=== PATIENT | female | born 1955 | race Caucasian/White ===

== ENCOUNTER 2020-01-24 18:39 | Emergency (ER) | payer BC, SELFPAY ==
--- NOTE | ~2020-01-24 | CT_ITS ---
EXAMINATION: CT abdomen pelvis wo con DATE: 01/24/2020 20:23 INDICATION: Epigastric pain and fever TECHNIQUE: Computed tomography (CT) of the abdomen and pelvis was performed without intravenous contr ast. The dose-length product (DLP) was 335.35 mGy-cm. Automated exposure control and iterative recons truction technique were employed. COMPARISON: None FINDINGS: There are at least nine nodules of the visualized lung bases, the largest of which measures 11 mm in the right lower lobe. There is mild emphysema. Dependent atelectasis is noted. The heart si ze is normal. There is circumferential wall thickening of the distal esophagus. Punctate calcificatio ns in an otherwise normal spleen likely represent healed granulomatous disease. The liver, pancreas, and adrenal glands are normal. There is mild gallbladder distention without surrounding inflammatory change or radiopaque stones. The right kidney is unremarkable. There is moderate left perinephric fat stranding. There is mild lumbar spondylosis. There is a small fat-containing umbilical hernia. No pa thologically enlarged abdominal or pelvic lymph nodes are identified. There is no free intraperitonea l gas or evidence of bowel obstruction. There is calcified atherosclerosis of the aorta and many of t he other arteries. IMPRESSION: 1. Left perinephric fat stranding which could reflect pyelonephritis. 2. Multiple nodules of the visualized lung bases measuring up to 11 mm. In the absence of prior imagi ng, CT follow-up in three months. 3. Circumferential wall thickening of the distal esophagus which could reflect esophagitis. Direct vi sualization is recommended. Reviewed, dictated and finalized at location A. IMPRESSION: 1. Left perinephric fat stranding which could reflect pyelonephritis. 2. Multiple nodules of the visualized lung bases measuring up to 11 mm. In the absence of prior imaging, CT follow-up in three months. 3. Circumferential wall thickening of the distal esophagus which could reflect esophagitis. Direct visualization is recommended.
[2020-01-24 18:45] VITALS: BP 110/65; RESP 20; TEMP 36.6; O2SAT 100
--- NOTE | 2020-01-24 18:53 | ECG_ITS ---
Measurements Intervals [place] Rate: 98 P: 22 MS: 143 QRS: -29 QRSD: 94 T: 17 QT: 342 QTc: 438 Interpretive Statements SINUS RHYTHM BASELINE ARTIFACT- I, III, V5 NORMAL ECG Electronically Signed On 01-25-2020 13:03:43 CDT by Luciano Carrillo D.O.
--- NOTE | 2020-01-24 19:06 | ED.ABDPAIN ---
HPI - Abdominal Pain General Chief Complaint: Abdominal Pain Stated Complaint: heartburn Time Seen by Provider: 01/24/20 19:05 History of Present Illness HPI narrative: Buring epgastric pain for the past 3 days. Radiates into the chest. Associated with nausea, vomiting, and loose stools. SHe has had significantly decreased PO intake. Additionally she was noted to have a fever this morning. She had testing done fr COVID-19, no results. She has not tried anything for her symproms. Related Data Allergies Allergy/AdvReac Type Severity Reaction Status Date / Time No Known Allergies Allergy Verified 01/24/20 18:50 Review of Systems Review of Systems: All systems reviewed & are unremarkable except as noted in HPI and below Constitutional: Constitutional: Reports fever(s) Cardiovascular: Cardiovascular: Denies chest pain Respiratory: Respiratory: Denies dyspnea Gastrointestinal: Gastrointestinal: Reports abdominal pain, Reports diarrhea, Reports nausea and Reports vomiting Genitourinary: Genitourinary: Denies hematuria and Denies dysuria Neurologic: Denies dizziness, Denies syncope, Denies numbness and Denies weakness [facility] Past Medical History Medical History Hypercholesteremia Hypertension Exam Const: General: healthy appearing, no acute distress and alert Orientation/consciousness: patient oriented x3 HENMT: Head: normal to inspection Neck: Neck: normal visual inspection and no lymphadenopathy Chest: Chest palpation & inspection: no tenderness Resp: Effort & Inspection: normal respiratory effort Auscultation: clear to auscultation bilaterally, no rales, no rhonchi and no wheezes Cardio: Jugular venous distension: no JVD Rate: regular rate Rhythm: regular rhythm Heart sounds: no murmurs GI: Inspection: non-distended GI Palp: Yes Soft to palpation and Yes Tenderness to palpation present (GI) (epigastrium) Skin: General skin exam: normal color Neuro: General: patient oriented x3 and moves all extremities Speech: normal speech Extrem: General: no edema Psych: Appearance: well kempt Affect: normal affect Course Vital Signs Vital signs: Vital Signs Temperature 36.6 C 01/24/20 18:45 Respiratory Rate 20 01/24/20 18:45 Blood Pressure 110/65 01/24/20 18:45 Pulse Oximetry 100 01/24/20 18:45 Temperature 36.6 C 01/24/20 18:45 Pulse Rate 86 01/24/20 20:52 Respiratory Rate 18 01/24/20 20:52 Blood Pressure 96/62 L 01/24/20 20:52 Pulse Oximetry 100 01/24/20 18:45 MDM - Abdominal Pain MDM Narrative Medical decision making narrative: Labs point toward [place], although no prior labs for comparison. CT shows stranding around the left kidney and findings consistent with esophagitis. I discussed all of these findings with the patient and recommended admission for IV antibiotics, hydration, and repeat labs. She declined hospital admission and said that she will return if she needs to. Differential Diagnosis Differential diagnosis: Likely acute appendicitis, diverticulitis, gastroenteritis, pancreatitis, small bowel obstruction and other (GERD, esphagitis, UTI, COVID-19) Medical Records Attestation: I reviewed the patient's medical records. Lab Data Attestation: I reviewed the patient's lab results. Result diagrams: 01/24/20 19:06 01/24/20 19:06 Labs: Lab Results 01/24/20 01/24/20 01/24/20 Range/Units 19:06 19:06 20:47 WBC 18.7 H (4.5-10.0) K/mm3 RBC 3.98 L (4.2-5.4) M/mm3 Hgb 11.7 L (12.0-15.0) g/dL Hct 35.1 L (37.0-47.0) % MCV 88.2 (80-100) fl MCH 29.4 (26-34) pg MCHC 33.3 (32-36) g/dl RDW 14.6 H (11.5-14.5) % Plt Count 195 (150-375) k/mm3 MPV 11.2 H (7.4-10.4) fl Immature Gran % (Auto) Not Reportable Neut % (Auto) Not Reportable Lymph % (Auto) Not Reportable [place] % (Auto) Not Reportable Eos % (Auto) Not Reportab
[2020-01-24 19:11] LABS: Hematocrit 35.1 % (37.0-47.0); Hemoglobin 11.7 g/dL (12.0-15.0); Mean Corpuscular HGB Conc 33.3 g/dl (32-36); Mean Corpuscular Hemoglobin 29.4 pg (26-34); Mean Corpuscular Volume 88.2 fl (80-100); Mean Platelet Volume 11.2 fl (7.4-10.4); Platelet Count Result 195 k/mm3 (150-375); Red Blood Count 3.98 M/mm3 (4.2-5.4); Red Cell Distribution Width 14.6 % (11.5-14.5); White Blood Count 18.7 K/mm3 (4.5-10.0)
[2020-01-24 19:23] LABS: Alanine Aminotransferase 20 U/L (4-35); Albumin Level 3.9 g/dL (3.5-5.1); Alkaline Phosphatase 99 U/L (38-126); Aspartate Amino Transferase 29 U/L (14-36); Bilirubin,Total 0.8 mg/dL (0.2-1.3); Blood Urea Nitrogen 39 mg/dL (7-17); Calcium 8.7 mg/dL (8.4-10.2); Carbon Dioxide 21 mmol/L (22-30); Chloride 94 mmol/L (98-107); Estimated Glomerular Filt Rate 27; Glucose 121 mg/dL (65-105); Lipase 64 U/L (23-300); Sodium 126 mmol/L (137-145)
[2020-01-24 19:29] LABS: Band Neutrophils Percent 14 % (0-6); Eosinophils Absolute Manual 0.18 K/mm3 (0.02-0.5); Eosinophils Percent Manual 1 % (0-4); Lymphocytes Absolute Manual 1.12 K/mm3 (1.1-4.5); Monocytes Absolute Manual 0.74 K/mm3 (0.1-0.90); Monocytes Percent Manual 4 % (3-9); Neutrophils Absolute Manual 16.64 K/mm3 (1.7-7.2); Neutrophils Percent Manual 75 % (46-73); Platelet Estimate Adequate (Adequate); Total Cells Counted 100
[2020-01-24] MEDS: SODIUM CHLORIDE 0.9% IV 1,000 ML 999 ML IV CONT (19:37)
[2020-01-24] MEDS: PANTOPRAZOLE SODIUM IV 40 MG VIAL IV PUSH (20:50)
[2020-01-24 20:52] VITALS: BP 96/62; PULSE 86; RESP 18
[2020-01-24 20:56] LABS: Add Urine Microscopic? YES; Appearance Urine Cloudy (Clear); Bacteria Urine Trace /hpf; Bilirubin Urine Negative (Negative); Blood Urine 1+ (Negative); Color Urine Yellow (Yellow); Glucose Urine UA Negative (Negative); Ketones Urine Negative (Negative); Leukocyte Esterase Ur Negative LEU/UL (Negative); Mucus Urine Rare /lpf; Nitrate Urine Negative (Negative); Protein Urine Negative (Negative); Specific Grav Ur 1.011 (1.001-1.035); Squamous Epithelial Cell Urine Rare /hpf (Few); Urobilinogen Urine Negative mg/dL (<2.0)
[2020-01-24] MEDS: CEFDINIR 300 MG CAPSULE PO (21:32)
== END 2020-01-24 21:34 | disposition home or self-care (01) ==
PROVIDERS: General Practice; Emergency Provider Emergency Medicine; PCP Internal Medicine Infectious Disease
DX: N10 Acute pyelonephritis (principal); K20.9 Esophagitis, unspecified; E78.00 Pure hypercholesterolemia, unspecified; I10 Essential (primary) hypertension
CPT/HCPCS: 36415; 74176; 80053; 81001; 83690; 85025; 93005; 96361; 96374; 99284; A9270; C9113; J7030

== ENCOUNTER 2020-04-17 10:27 | Outpatient (CLI) | payer BC, SELFPAY ==
--- NOTE | ~2020-04-17 | CT_ITS ---
EXAMINATION:CT chest w con DATE: 04/17/2020 11:47 INDICATION: Multiple nodules of lung. TECHNIQUE: Computed tomography (CT) of the chest was performed with 75 mL Omnipaque 350 intravenous c ontrast. Automated exposure control and iterative reconstruction technique were employed. The dose-le ngth product (DLP) was 130.37 mGy-cm. COMPARISON: CT abdomen and pelvis 01/24/2020 FINDINGS: There is moderate emphysema. Calcified left lung nodules and calcified left hilar and media stinal lymph nodes are consistent with old granulomatous disease. There is mild atelectasis bilateral ly. There is a 7 mm nodule in right lower lobe that previously measured 9 mm. There is an 8 mm nodule in right lower lobe that previously measured 11 mm. There are other stable nodules in right lower lo be measuring up to 5 mm. There is a stable 5 mm nodule in right middle lobe. There are a few nodules in left lower lobe measuring up to 5 mm with improvement in some of the nodules. The heart size is no rmal. No pericardial effusion. There is mild right hilar and right paratracheal lymphadenopathy. Calc ifications in the spleen are consistent with old granulomatous disease. There is moderate thoracic sp ondylosis. IMPRESSION: 1. Pulmonary nodules with interval improvement, probably benign. Noncontrast low-dose chest CT is rec ommended in 6-12 months. 2. Mild right hilar and right paratracheal lymphadenopathy, likely reactive. 3. Moderate emphysema. Reviewed, dictated and finalized at location B. IMPRESSION: 1. Pulmonary nodules with interval improvement, probably benign. Noncontrast lo w-dose chest CT is recommended in 6-12 months. 2. Mild right hilar and right paratracheal lymphadenopathy, likely reactive. 3. Moderate emphysema.
[2020-04-17 11:38] LABS: Estimated Glomerular Filt Rate > 60
== END 2020-04-17 10:28 | disposition home or self-care (01) ==
LOC: ANHIMG 10:38
PROVIDERS: PCP Internal Medicine Infectious Disease; Visit Provider Internal Medicine Infectious Disease
DX: R91.8 Other nonspecific abnormal finding of lung field (principal); J43.9 Emphysema, unspecified
CPT/HCPCS: 36415; 71260; Q9967